=== PATIENT | male | born 1955 | race Caucasian/White ===

== ENCOUNTER 2018-10-13 09:15 | Outpatient (CLI) | payer BC ==
[~2018-10-13] VITALS: Ht 188 cm; Wt 103.4 kg
[2018-10-13] VITALS (18 sets, daily range): BP systolic 108–150; BP diastolic 56–91; PULSE 67–97; TEMP 98
[~2018-10-13 09:15] MED LIST: AMOXICILLIN875 MG PO; ASPIRIN E.C. 8181 MG PO; PRAVACHOL 40MG40 MG PO; TOPROL XL 25MG25 MG PO
--- NOTE | 2018-10-13 10:05 | NUR ---
pt to ct per ambulation. Pt placed in prone position on ct table. Monitors applied.
--- NOTE | 2018-10-13 10:15 | NUR ---
Dr Chowdhury into ct to review ct films.
--- NOTE | 2018-10-13 10:20 | NUR ---
Dr Chowdhury talks with pt regarding procedure.
--- NOTE | 2018-10-13 10:37 | NUR ---
Specimens obtained by Dr Chowdhury and placed in formalin. Specimen labeled.
--- NOTE | 2018-10-13 10:55 | NUR ---
Pt to EU 12 per cart s/p lung bx. Pt resting well.
--- NOTE | 2018-10-13 13:40 | NUR ---
Pt has ambulated and chad PO intake s n/v. PIV removed with catheter intact.
--- NOTE | 2018-10-13 13:45 | NUR ---
Pt discharged per w/c by nurse with .
== END 2018-10-13 14:29 | disposition home or self-care (01) ==
LOC: COL.RAD 09:15
DX: R91.8 Other nonspecific abnormal finding of lung field (principal)
CPT/HCPCS: J2250; J3010

== ENCOUNTER 2021-08-25 14:43 | Day surgery (SDC) | payer MEDICARE ==
[2021-08-25] VITALS (7 sets, daily range): BP systolic 144–162; BP diastolic 76–92; PULSE 75–90; TEMP 97.8–98.3
[~2021-08-25] VITALS: Ht 188 cm; Wt 100.9 kg
[2021-08-25] MEDS ORDERED: PRAVACHOL 40MG40 MG PO (16:35)
[2021-08-25] MEDS ORDERED: NORCO 325 MG-51 TAB PO ×2 (16:36→17:31)
[2021-08-25] MEDS ORDERED: TRICOR 48MG48 MG PO (16:36)
[2021-08-25] MEDS ORDERED: TOPROL XL 25MG25 MG PO (16:36)
[2021-08-25] MEDS ORDERED: FLEXERIL 1010 MG/TAB PO (16:37)
[2021-08-25] MEDS ORDERED: PRIL40 PO (16:37)
[2021-08-25 17:05] LABS: CALCIUM 9.2 mg/dL (8.4-10.2); CREATININE, serum 0.87 mg/dL (0.72-1.25)
[2021-08-25] MEDS ORDERED: PYRIDIUM 100MG100 MG PO (17:31)
--- NOTE | 2021-08-25 18:17 | NUR ---
Pt sitting up in recliner with and daughter at . pt is picking at her dinner and drinking an ensure. 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 this rn standing by with gait belt. pt practiced transferring weight from 1 foot to another, and then was able to turn and reach for chair arms on both sides prior to a controlled sit. Pt then set back up with feet elevated and covered with blankets. family remains at . pt continues with ensure.
--- NOTE | 2021-08-25 19:10 | NUR ---
PT ARRIVED VIA BED FROM PACU. IS ALERT AND ORIENTED X4. REPORTS MILD DISCOMFORT. SPOUSE AT BEDSIDE. SANDWICH BOX PROVIDED. DENIES N/V. IVF TO LEFT WRIST, INT TO LEFT HAND.
--- NOTE | 2021-08-25 20:10 | NUR ---
PT TAKING FOOD AND FLUIDS WITHOUT PROBLEM. READY TO GO HOME. HAS VOIDED 600CC REDDISH URINE.
--- NOTE | 2021-08-25 20:30 | NUR ---
REVIEWED DISCHARGE INSTRUCTIONS WITH PT AND SPOUSE. REMOVED INT AND IV SITE FROM LEFT HAND AND WRIST, ANGIOCATH INTACT.
--- NOTE | 2021-08-25 20:40 | NUR ---
PT ESCORTED TO PRIVATE CAR. PERSONAL BELONGINGS AND DISCHARGE INSTRUCTIONS SENT WITH PT.
== END 2021-08-25 20:40 | disposition home or self-care (01) ==
LOC: SDCO 14:43 → SURG 19:47 → SDCO 20:40
PROVIDERS: Urology
DX: N20.1 Calculus of ureter (principal); F17.210 Nicotine dependence, cigarettes, uncomplicated
CPT/HCPCS: OP; C1769; C2617; J0690; J1100; J2405; J2704; J3010; J7120; Q9967